=== PATIENT | male | born 1970 ===

== ENCOUNTER 2024-02-12 11:43 | Outpatient (REF) | payer OTHER, SELFPAY | END 2024-02-12 11:44 | disposition home or self-care (01) | LOC: HO.HOSX 11:43 | PROVIDERS: Visit Provider Physician Assistant | DX: Z13.89 Encounter for screening for other disorder (principal) ==

== ENCOUNTER 2024-02-13 07:58 | Outpatient (AMB) | payer OTHER, SELFPAY ==
--- NOTE | 2024-02-13 08:30 | A.OFFVIS_ITS ---
Vital Signs 02/13/24 08:36 Height 518 ft 4.48 in Weight 140 lb BMI 0.0 Intake Visit Reasons: FC - Left Wrist Fx, Rt Patellla Fx DOI: 01/29/24 Intake Note: Carlton a 53 year old right hand dominant Khmer speaking male who presents today for a WC injury to his left wrist and right knee, DOI 01/29/24. Patient reports to office with nurse hospice case manager Nahomy, he was seen at [facility] and was referred to orthopedics. He states very mild pain in his wrist. Denies numbness or tingling. He states improvement in his knee pain however he continues to have mild pain in the anterior aspect of knee and his calf area as well as swelling Allergies No Known Allergies Allergy (Verified 02/13/24 08:36) HPI HPI FC - Left Wrist Fx, Rt Patellla Fx DOI: 01/29/24: Details: 53-year-old right hand dominant Khmer speaking male who presents to the office today with nurse hospice case manager for evaluation of left wrist and right knee injury at work, 01/29/24. He was seen at [facility] where he was referred to our office. He currently states he has minimal pain in his wrist. He denies any numbness or tingling. He states he has improvement in his knee however he continues to have mild pain and swelling at the anterior aspect of his knee and calf area. He also c/o swelling in his calf region. 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 Review of Systems Const All systems reviewed & are unremarkable except as noted in HPI and below Physical Exam Vital Signs: BMI result Body Mass Index 0.0 Const General: cooperative, healthy appearing, comfortable, no acute distress, well developed and alert Orientation/consciousness: patient oriented x3 HEENT Head: Yes normal to inspection, Yes normocephalic and Yes atraumatic Eyes General: appearance normal, both eyes and all related structures Resp Effort & Inspection: normal respiratory effort and able to speak in complete sentences Cardio Rate: regular rate Peripheral pulses: Peripheral pulses 2+ throughout GI Palpation (GI): Soft to palpation Skin Lesions: no lesions Rashes: no rashes Neuro General: patient oriented x3 Extrem Other: Left wrist: Skin intact. There is significant swelling and bruising over the distal radius with tenderness over the fracture site. There is no pain over the elbow, negative forearm squeeze test. He has full range of motion of the elbow. He can fully extend all digits and make a closed fist.? Pulses are present and she is neurovascularly intact. Right knee: Skin intact, no erythema or joint effusion. Tenderness along the medial and lateral joint line. Full ROM with crepitus. Negative Stephanie?s. No ligamentous laxity. NVI. Results Reviewed Results Reviewed: Xrays were obtained in the office today and personally reviewed by me of the right wrist show intraarticular distal radius fracture Xrays were obtained in the office today and personally reviewed by me of the right knee negative for acute fracture or dislocations. Assessment & Plan Assessment & Plan (1) Distal radius fracture, left: Code(s): S52.502A - Unspecified fracture of the lower end of left radius, initial encounter for closed fracture Category: Medical (2) Strain of right gastrocnemius muscle: Code(s): S86.111A - Strain of other muscle(s) and tendon(s) of posterior muscle group at lower leg level, right leg, initial encounter Category: Medical Plan I explained to the patient the extent of the injury and options available.? We can treat this conservatively but will have to watch him very closely to make sure there is no displacement.? He would have to do no lifting more than a cell phone.? This would mean no lifting, carrying, pushing, pulling, or repetitive use of the left upper extremity at work/home.? I did explain to him that conservative treatment would likely be a cast for 6 weeks.? If there is some displacement that occurs, we may need to discuss surgical intervention which could require pinning versus plate and screws.? I also educated him on the risk factors of smoking and the effect that it can have on bone healing.? He does understand all this and will see me back in a week with Dr. Partida in the office for repeat x-rays. For his right leg, he was placed in a tall boot weight bearing as tolerated. He will begin a course of physical therapy to work on stretching, strengthening and proprioceptive training. He will see me back in 1 week for his wrist with cast off and new x-rays and will avoid the use of his LUE at work. Orders: Orders XR knee RT 2V 02/13/24 M25.569 - Pain in unspecified knee PT Evaluation and Treatment 02/13/24 S86.111A - Strain of other muscle(s) and tendon(s) of posterior muscle group at lower leg level, right leg, initial encounter XR wrist LT min 3V 02/13/24 M25.532 - Pain in left wrist Patient Instructions: Scribed for Beena Parks PA-C, by Vic Hollingsworth medical physics researcher, on 02/13/2024 at 8:30 AM EST.? I, Beena Parks PA-C, have personally reviewed and agree with the information entered by the scribe. Coding Level of Care Code New Pt Level 3 (05737) Diagnoses Distal radius fracture, left S52.502A Strain of right gastrocnemius muscle S86.111A
== END 2024-02-13 09:51 | disposition home or self-care (01) ==
PROVIDERS: Visit Provider Physician Assistant
DX: S52.502A Unspecified fracture of the lower end of left radius, initial encounter for closed fracture (principal); S86.111A Strain of other muscle(s) and tendon(s) of posterior muscle group at lower leg level, right leg, initial encounter; Z04.2 Encounter for examination and observation following work accident
CPT/HCPCS: 25600; 99204

== ENCOUNTER 2024-02-13 21:41 | Outpatient (REF) | payer OTHER, SELFPAY ==
--- NOTE | ~2024-02-13 | XR_ITS ---
EXAMINATION: XR KNEE, RIGHT XR WRIST, LEFT CLINICAL INDICATION: Pain in knee, left wrist. Splint off wrist. COMPARISON: None available. TECHNIQUE: 3 views left wrist. 2 views right knee. FINDINGS: RIGHT KNEE: Moderate joint effusion. Mild narrowing of the medial compartment. Minimal posterior patellar spurring. LEFT WRIST: Impacted, comminuted intra-articular fracture of the distal radius with volar displacement of distal fracture fragment. Mild degenerative changes of 1st carpometacarpal and metacarpophalangeal joints. XR/XR knee RT 2V IMPRESSION: 1. Impacted, comminuted intra-articular fracture of the distal radius with volar displacement of distal fracture fragment. 2. Moderate joint effusion right knee.
--- NOTE | ~2024-02-13 | XR_ITS ---
EXAMINATION: XR KNEE, RIGHT XR WRIST, LEFT CLINICAL INDICATION: Pain in knee, left wrist. Splint off wrist. COMPARISON: None available. TECHNIQUE: 3 views left wrist. 2 views right knee. FINDINGS: RIGHT KNEE: Moderate joint effusion. Mild narrowing of the medial compartment. Minimal posterior patellar spurring. LEFT WRIST: Impacted, comminuted intra-articular fracture of the distal radius with volar displacement of distal fracture fragment. Mild degenerative changes of 1st carpometacarpal and metacarpophalangeal joints. XR/XR wrist LT min 3V IMPRESSION: 1. Impacted, comminuted intra-articular fracture of the distal radius with volar displacement of distal fracture fragment. 2. Moderate joint effusion right knee.
== END 2024-02-13 21:42 | disposition home or self-care (01) ==
LOC: HO.HOSX 21:41
PROVIDERS: Visit Provider Physician Assistant
DX: S52.502A Unspecified fracture of the lower end of left radius, initial encounter for closed fracture (principal); S86.111A Strain of other muscle(s) and tendon(s) of posterior muscle group at lower leg level, right leg, initial encounter
CPT/HCPCS: 25600; 73110; 73560; 99202

== ENCOUNTER 2024-02-20 12:23 | Outpatient (REF) | payer OTHER, SELFPAY ==
--- NOTE | ~2024-02-20 | XR_ITS ---
EXAMINATION: XR WRIST, LEFT CLINICAL INFORMATION: Pain in left hand, cast off. COMPARISON: February 13, 2024. TECHNIQUE: PA, lateral, and oblique views of the left wrist. FINDINGS: Redemonstration of impacted, comminuted intra-articular fracture of the distal radius. Alignment appears similar. Mild interval bridging callus formation. Mildly displaced fracture of the ulnar styloid redemonstrated. Mild degenerative changes in the first carpometacarpal joint. XR/XR wrist LT min 3V IMPRESSION: 1. Redemonstration of impacted, comminuted intra-articular fracture of the distal radius. Alignment appears similar. Mild interval bridging callus formation. 2. Mildly displaced fracture of the ulnar styloid redemonstrated.
== END 2024-02-20 12:24 | disposition home or self-care (01) ==
LOC: HO.HOSX 12:23
PROVIDERS: Visit Provider Physician Assistant
DX: S52.532D Colles' fracture of left radius, subsequent encounter for closed fracture with routine healing (principal); S86.111D Strain of other muscle(s) and tendon(s) of posterior muscle group at lower leg level, right leg, subsequent encounter
CPT/HCPCS: 29075; 73110; 99212

== ENCOUNTER 2024-02-20 14:36 | Outpatient (AMB) | payer OTHER, SELFPAY ==
--- NOTE | 2024-02-20 14:46 | A.OFFVIS_ITS ---
Intake Visit Reasons: OV - left wrist fx, right patell. DOI 01/29/24 Intake Note: Carlton a 53 year old right hand dominant St Helenian speaking male who presents today for a follow up s/p WC injury to his left wrist and right knee, DOI 01/29/24. Cast off and xrays updated. Patient reports the pain is getting better but his thumb is still painful and has a little swelling. Allergies No Known Allergies Allergy (Verified 02/20/24 14:49) HPI HPI OV - left wrist fx, right patell. DOI 01/29/24: Details: 53-year-old right hand dominant male who returns to the office today with a laceworker for a follow-up of left wrist fracture and right knee, 01/29/24. He states he has improvement in his knee pain however he continues to have pain and mild swelling in his thumb. He has no concerns today. 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 Review of Systems Const All systems reviewed & are unremarkable except as noted in HPI and below Physical Exam Const General: cooperative, healthy appearing, comfortable, no acute distress, well developed and alert Orientation/consciousness: patient oriented x3 HEENT Head: Yes normal to inspection, Yes normocephalic and Yes atraumatic Eyes General: appearance normal, both eyes and all related structures Resp Effort & Inspection: normal respiratory effort and able to speak in complete sentences Cardio Rate: regular rate Peripheral pulses: Peripheral pulses 2+ throughout GI Palpation (GI): Soft to palpation Skin Lesions: no lesions Rashes: no rashes Neuro General: patient oriented x3 Extrem Other: Left wrist: Skin intact. No swelling or bruising over the distal radius with tenderness over the fracture site. There is no pain over the elbow, negative forearm squeeze test. He has full range of motion of the elbow. He can fully extend all digits and make a closed fist.? Pulses are present and she is neurovascularly intact. Office Procedures Fracture Care Fracture Billing Code: Fracture Billing Code Results Reviewed Results Reviewed: Xrays were obtained in the office today and personally reviewed by me of the [facility] wrist show intraarticular distal radius fracture Assessment & Plan Assessment & Plan (1) Distal radius fracture, left: Code(s): S52.502A - Unspecified fracture of the lower end of left radius, initial encounter for closed fracture Category: Medical Qualifiers: Encounter type: subsequent encounter Fracture type: closed Fracture morphology: Colles' Fracture healing: with routine healing Qualified Code(s): S52.532D - Colles' fracture of left radius, subsequent encounter for closed fracture with routine healing (2) Strain of right gastrocnemius muscle: Code(s): S86.111A - Strain of other muscle(s) and tendon(s) of posterior muscle group at lower leg level, right leg, initial encounter Category: Medical Plan We will continue to treat this conservatively but will have to watch him very closely to make sure there is no displacement.? He would have to do no lifting more than a cell phone.? This would mean no lifting, carrying, pushing, pulling, or repetitive use of the left upper extremity at work/home.? I did explain to him that conservative treatment would likely be a cast for 6 weeks. I also educated him on the risk factors of smoking and the effect that it can have on bone healing.? He does understand all this and will see me back in 3weeks in the office for cast off and repeat x-rays. Orders: Orders XR wrist LT min 3V Today M25.532 - Pain in left wrist Patient Instructions: Scribed for Beena Parks PA-C, by Vic Hollingsworth medical registrar, on 02/20/2024 at 2:00 PM EST.? I, Beena Parks PA-C, have personally reviewed and agree with the information entered by the scribe. Coding Level of Care Code Global (66426) Diagnoses Closed Colles' fracture of left radius with routine healing, subsequent encounter S52.532D Encounter type: subsequent encounter Fracture type: closed Fracture morphology: Colles' Fracture healing: with routine healing Strain of right gastrocnemius muscle S86.111A CPT Codes Fracture Care - Fracture Billing Code: Fracture Billing Code ([id number])
== END 2024-02-20 16:00 | disposition home or self-care (01) ==
LOC: HO.HOS 14:37
PROVIDERS: Visit Provider Physician Assistant
DX: S52.532D Colles' fracture of left radius, subsequent encounter for closed fracture with routine healing (principal); S86.111A Strain of other muscle(s) and tendon(s) of posterior muscle group at lower leg level, right leg, initial encounter
CPT/HCPCS: 29075; 99024

== ENCOUNTER 2024-03-19 08:29 | Outpatient (REF) | payer OTHER, SELFPAY ==
--- NOTE | ~2024-03-19 | XR_ITS ---
EXAMINATION: XR WRIST, LEFT CLINICAL INFORMATION: Left wrist pain, fracture follow-up COMPARISON: Radiographs 724 TECHNIQUE: PA, lateral, and oblique views of the left wrist. FINDINGS: Fracture lines of the impacted, intra-articular distal radius fracture are less conspicuous indicating interval partial healing. Ununited ulnar styloid avulsion fracture. Decrease in dorsal soft tissue swelling. Dorsally displaced/angulated fracture of Ankush's tubercle. XR/XR wrist LT min 3V IMPRESSION: Partial interval healing of the impacted, intra-articular distal radius fracture. Ununited ulnar styloid avulsion fracture.
== END 2024-03-19 08:30 | disposition home or self-care (01) ==
LOC: HO.HOSX 08:29
PROVIDERS: Visit Provider Physician Assistant
DX: S52.532D Colles' fracture of left radius, subsequent encounter for closed fracture with routine healing (principal)
CPT/HCPCS: 73110; 99212

== ENCOUNTER 2024-03-19 10:33 | Outpatient (AMB) | payer OTHER, SELFPAY ==
--- NOTE | 2024-03-19 11:30 | MHC.OFFVIS ---
Vital Signs 03/19/24 11:35 Weight 140 lb Intake Visit Reasons: OV - left wrist fx, right patell. DOI 01/29/24 Intake Note: Carlton a 53 year old right hand dominant Polish speaking male who presents today for a follow up s/p WC injury to his left wrist and right knee, DOI 01/29/24. Patient reports he has no concerns today and would like to know if he is able to return to work on Friday without restrictions due to him feeling good and having no pain. Marketing Manager Health Communications Required: Yes Marketing Manager Health Communications Language: Cheesemaking Laborer Name: [id number] Allergies No Known Allergies Allergy (Verified 03/19/24 11:35) Medication List - Last Reconciled 03/19/24 by Beena Parks PA-C No Known Home Meds HPI HPI OV - left wrist fx, right patell. DOI 01/29/24: Details: 53-year-old right hand dominant male who returns to the office today with an supply technician for a follow-up of left wrist 01/29/24. He states he has no pain or discomfort and is doing well overall. He would like to know about his work status today. He has no other concerns today. 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 Review of Systems Const All systems reviewed & are unremarkable except as noted in HPI and below Physical Exam Const General: cooperative, healthy appearing, comfortable, no acute distress, well developed and alert Orientation/consciousness: patient oriented x3 HEENT Head: Yes normal to inspection, Yes normocephalic and Yes atraumatic Eyes General: appearance normal, both eyes and all related structures Resp Effort & Inspection: normal respiratory effort and able to speak in complete sentences Cardio Rate: regular rate Peripheral pulses: Peripheral pulses 2+ throughout GI Palpation (GI): Soft to palpation Skin Lesions: no lesions Rashes: no rashes Neuro General: patient oriented x3 Extrem Other: Left wrist: Skin intact. No swelling or bruising over the distal radius with tenderness over the fracture site. There is no pain over the elbow, negative forearm squeeze test. He has full range of motion of the elbow. He can fully extend all digits and make a closed fist.? Pulses are present and she is neurovascularly intact. Results Reviewed Results Reviewed: Xrays were obtained in the office today and personally reviewed by me of the right wrist show intraarticular distal radius fracture with stable alignment and interval healing Assessment & Plan Assessment & Plan (1) Distal radius fracture, left: Code(s): S52.502A - Unspecified fracture of the lower end of left radius, initial encounter for closed fracture Category: Medical Qualifiers: Encounter type: subsequent encounter Fracture healing: with routine healing Fracture morphology: Colles' Fracture type: closed Qualified Code(s): S52.532D - Colles' fracture of left radius, subsequent encounter for closed fracture with routine healing Plan She was transitioned to a Velcro wrist splint which she will wear with activities. She will return to work on 03/22 with light duty restrictions. She will avoid any type of lifting, pushing, pulling, or carrying more than a cellphone and perform no ladder climbing. An order for occupational therapy was also placed in the office today. I would like to see her back in 6 weeks with new x-rays, sooner if needed. Orders: Orders XR wrist LT min 3V Today M25.532 - Pain in left wrist OT Evaluation and Treatment Today S52.532D - Colles' fracture of left radius, subsequent encounter for closed fracture with routine healing Patient Instructions: Scribed for Beena Parks PA-C, by Vic Hollingsworth medical file clerk, on 03/19/2024 at 11:00 AM EST.? I, Beena Parks PA-C, have personally reviewed and agree with the information entered by the scribe. Coding Level of Care Code Global (16196) Diagnoses Closed Colles' fracture of left radius with routine healing, subsequent encounter S52.532D Encounter type: subsequent encounter Fracture healing: with routine healing Fracture morphology: Colles' Fracture type: closed
== END 2024-03-19 12:07 | disposition home or self-care (01) ==
PROVIDERS: Visit Provider Physician Assistant
DX: S52.532D Colles' fracture of left radius, subsequent encounter for closed fracture with routine healing (principal)
CPT/HCPCS: 99024

== ENCOUNTER 2024-04-30 10:33 | Outpatient (AMB) | payer OTHER, SELFPAY ==
--- NOTE | 2024-04-30 10:37 | MHC.OFFVIS ---
Intake Visit Reasons: 6 wk fu left distal radius w xrays Intake Note: Carlton is a 53 year old right hand dominant male who presents today for a follow up with his skilled nursing case manager s/p Left Distal Radius Fracture s/p WC injury to his left wrist and right knee, DOI 01/29/24. Patient was placed in velcro wrist splint and given a note 7/8 with light duty restrictions. He is working light duty with restrictions on any type of lifting, pushing, pulling, or carrying more than a cellphone and perform no ladder climbing. Allergies No Known Allergies Allergy (Verified 03/19/24 11:35) HPI HPI 6 wk fu left distal radius w xrays: Details: Carlton is a 53 year old right hand dominant male who presents today for a follow up with his skilled nursing case manager s/p Left Distal Radius Fracture s/p WC injury to his left wrist and right knee, DOI 01/29/24. Patient was placed in velcro wrist splint and given a note 7/8 with light duty restrictions. She will avoid any type of lifting, pushing, pulling, or carrying more than a cellphone and perform no ladder climbing. 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 Stiff in flexion Dynasplint and continue current work restrictions. Continue OT F/u 6 weeks Orders: Orders XR wrist LT min 3V 04/30/24 M25.532 - Pain in left wrist Coding Level of Care Code Est Pt Level 3 (19562) Diagnoses Closed Colles' fracture of left radius with routine healing, subsequent encounter S52.532D Encounter type: subsequent encounter Fracture type: closed Fracture morphology: Colles' Fracture healing: with routine healing
== END 2024-04-30 11:02 | disposition home or self-care (01) ==
PROVIDERS: Absent Provider Orthopaedic Surgery; Visit Provider Orthopaedic Surgery
DX: S52.532D Colles' fracture of left radius, subsequent encounter for closed fracture with routine healing (principal)
CPT/HCPCS: 99024

== ENCOUNTER → 2024-04-30 10:33 | Outpatient (BNVA) | payer OTHER, SELFPAY | PROVIDERS: Absent Provider Orthopaedic Surgery; Visit Provider Physician Assistant | DX: S52.532D Colles' fracture of left radius, subsequent encounter for closed fracture with routine healing (principal) | CPT/HCPCS: 99212 ==

== ENCOUNTER 2024-06-11 09:27 | Outpatient (AMB) | payer OTHER, SELFPAY ==
--- NOTE | 2024-06-11 10:07 | A.OFFVIS_ITS ---
Vital Signs 06/11/24 10:20 Height 5 ft 4 in Weight 140 lb BMI 24.0 Intake Visit Reasons: OV - Right Distal Radius Fx 01/29/24 Intake Note: Carlton is a 53 year old right hand dominant male who presents today with his case preparer and liner for a follow up of his left distal radius fracture, DOI 01/29/24. Patient reports he continues to have pain. He has was given a brace by OT to use daily for an hour and a half, however brace increases his pain making it difficult to do exercise. OT is requesting an extension on his brace. He complains of ongoing pain in his right knee with use of stairs or fast walking. He did not attend PT due to him feeling his knee would get better. Pipe Fitter [employer]pper Required: Yes Pipe Fitter [employer]pper Services: Pipe Fitter Soft [employer]pper Present Pipe Fitter Soft Copper Name: IGNACIO Garza/RIKKI Allergies No Known Allergies Allergy (Verified 06/11/24 10:19) HPI HPI OV - Right Distal Radius Fx 01/29/24: Details: 53-year-old right hand dominant male who returns to the office today with his case preparer and liner for a follow-up of right wrist fracture, 01/29/24. He continues to have pain in his wrist that is aggravated with wearing his brace. He was given a brace by occupational therapy however his pain makes it difficult to work on exercises. He also reports he has pain in his right knee that is aggravated with stairs and running. He did not attend physical therapy as he felt his knee would get better. 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 Review of Systems Const All systems reviewed & are unremarkable except as noted in HPI and below Physical Exam Vital Signs: BMI result Body Mass Index 24.0 Const General: cooperative, healthy appearing, comfortable, no acute distress, well developed and alert Orientation/consciousness: patient oriented x3 HEENT Head: Yes normal to inspection, Yes normocephalic and Yes atraumatic Eyes General: appearance normal, both eyes and all related structures Resp Effort & Inspection: normal respiratory effort and able to speak in complete sentences Cardio Rate: regular rate Peripheral pulses: Peripheral pulses 2+ throughout GI Palpation (GI): Soft to palpation Skin Lesions: no lesions Rashes: no rashes Neuro General: patient oriented x3 Extrem Other: Left wrist: Skin intact. No swelling or bruising over the distal radius with tenderness over the fracture site. There is no pain over the elbow, negative forearm squeeze test. He has full range of motion of the elbow. He can fully extend all digits and make a closed fist.? Pulses are present and she is neurovascularly intact. Results Reviewed Results Reviewed: Xrays were obtained in the office today and personally reviewed by me of the right wrist show intraarticular distal radius fracture with stable alignment and interval healing Assessment & Plan Assessment & Plan (1) Distal radius fracture, left: Code(s): S52.502A - Unspecified fracture of the lower end of left radius, initial encounter for closed fracture Category: Medical Qualifiers: Encounter type: subsequent encounter Fracture healing: with routine healing Fracture morphology: Colles' Fracture type: closed Qualified Code(s): S52.532D - Colles' fracture of left radius, subsequent encounter for closed fracture with routine healing (2) Strain of right gastrocnemius muscle: Code(s): S86.111A - Strain of other muscle(s) and tendon(s) of posterior muscle group at lower leg level, right leg, initial encounter Category: Medical Plan He will be transitioned to work hardening therapy program. His work status remain the same however he will begin lifting 5 pounds. I would like to see him back in 8 weeks to determine his work status, sooner if needed. Orders: Orders XR wrist RT min 3V Today M25.531 - Pain in right wrist PT Evaluation and Treatment Today S52.532D - Colles' fracture of left radius, subsequent encounter for closed fracture with routine healing, S86.111A - Strain of other muscle(s) and tendon(s) of posterior muscle group at lower leg level, r ight leg, initial encounter Patient Instructions: Scribed for Beena Parks PA-C, by Vic Hollingsworth medical or surgical instrument maker, on 06/11/2024 at 9:45 AM EST.? I, Beena Parks PA-C, have personally reviewed and agree with the information entered by the scribe. Coding Level of Care Code Est Pt Level 3 (00615) Complex EM visit Add On G2211 Diagnoses Closed Colles' fracture of left radius with routine healing, subsequent encounter S52.532D Encounter type: subsequent encounter Fracture healing: with routine healing Fracture morphology: Colles' Fracture type: closed Strain of right gastrocnemius muscle S86.111A
[2024-06-11 10:20] VITALS: BMI 24.0
== END 2024-06-11 10:47 | disposition home or self-care (01) ==
PROVIDERS: Visit Provider Physician Assistant
DX: S52.532D Colles' fracture of left radius, subsequent encounter for closed fracture with routine healing (principal); S86.111A Strain of other muscle(s) and tendon(s) of posterior muscle group at lower leg level, right leg, initial encounter
CPT/HCPCS: 99213; G2211

== ENCOUNTER 2024-06-11 09:27 | Outpatient (REF) | payer OTHER, SELFPAY ==
--- NOTE | ~2024-06-11 | XR_ITS ---
EXAMINATION: XR WRIST, RIGHT CLINICAL INFORMATION: M25.531 - Pain in right wrist COMPARISON: None available. TECHNIQUE: PA, lateral, and oblique views of the right wrist. FINDINGS: Diffuse osteopenia. Redemonstration of intra-articular fracture of the distal radius without significant displacement, and stable alignment. Stable minimal articular step-off on the lateral projection. Fracture lines continue to become less distinct and sclerotic indicating healing. Ulnar styloid fracture also healing. There is mild narrowing of the radiocarpal joint, and mild arthritis in the STT joints and first CMC joint. There is spurring of the DRUJ. Neutral ulnar variance. Soft tissue swelling has improved. XR/XR wrist RT min 3V IMPRESSION: 1. Healing intra-articular radial fracture in stable alignment. 2. Healing ulnar styloid fracture. 3. Improved soft tissue swelling. 4. Disuse osteopenia. Electronically signed by: Eleazar Peters MD 08/20/2024 02:02 PM NADIYA
--- NOTE | ~2024-06-11 | XR_ITS ---
EXAMINATION: XR WRIST, LEFT CLINICAL INFORMATION: M25.532 - Pain in left wrist COMPARISON: 06/11/2024, 03/19/2024, and dating back to 02/13/2024. TECHNIQUE: PA, lateral, and oblique views of the left wrist. FINDINGS: Diffuse osteopenia. Redemonstration of intra-articular fracture of the distal radius without significant displacement, and stable alignment. Stable minimal articular step-off on the lateral projection. Fracture lines continue to become less distinct and sclerotic indicating healing. Ulnar styloid fracture also healing. There may be nonunion. There is mild narrowing of the radiocarpal joint, and mild arthritis in the STT joints and first CMC joint. There is spurring of the DRUJ. Neutral ulnar variance. Soft tissue swelling has improved significantly. XR/XR wrist LT min 3V IMPRESSION: 1. Healing intra-articular radial fracture in stable alignment. 2. Healing ulnar styloid fracture, possibly with nonunion. 3. Improved soft tissue swelling. Electronically signed by: Eleazar Peters MD 08/20/2024 02:00 PM NADIYA
== END 2024-06-11 09:28 | disposition home or self-care (01) ==
LOC: HO.XRAY 09:27
PROVIDERS: Visit Provider Physician Assistant
DX: S52.531D Colles' fracture of right radius, subsequent encounter for closed fracture with routine healing (principal); M25.532 Pain in left wrist; S86.111A Strain of other muscle(s) and tendon(s) of posterior muscle group at lower leg level, right leg, initial encounter
CPT/HCPCS: 73110; 99212

== ENCOUNTER → 2024-06-11 09:42 | Outpatient (BNV) | payer OTHER, SELFPAY | PROVIDERS: Visit Provider Radiology Diagnostic Radiology | DX: S52.571D Other intraarticular fracture of lower end of right radius, subsequent encounter for closed fracture with routine healing (principal); S52.611D Displaced fracture of right ulna styloid process, subsequent encounter for closed fracture with routine healing; S52.572D Other intraarticular fracture of lower end of left radius, subsequent encounter for closed fracture with routine healing; S52.612D Displaced fracture of left ulna styloid process, subsequent encounter for closed fracture with routine healing | CPT/HCPCS: 73110 ==

== ENCOUNTER 2024-08-05 09:03 | Outpatient (AMB) | payer OTHER, SELFPAY ==
--- NOTE | 2024-08-05 09:37 | A.OFFVIS_ITS ---
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 Patient reports he is doing well, he has been discharged from work conditioning. Deep Tissue Massage Therapist Required: Yes Deep Tissue Massage Therapist Services: Deep Tissue Massage Therapist Present Deep Tissue Massage Therapist Name: Sherwin ID#[id number] Allergies No Known Allergies Allergy (Verified 08/05/24 09:46) HPI HPI OV-f/u Left distal radius fx-rtw status: Details: 54-year-old gentleman returns to the office today for a follow-up left distal radius fracture. He has been working with physical therapy on a work conditioning program which she has successfully completed. 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 Review of Systems Const All systems reviewed & are unremarkable except as noted in HPI and below Physical Exam Vital Signs: BMI result Body Mass Index 24.0 Const General: cooperative, healthy appearing, comfortable, no acute distress, well developed and alert Orientation/consciousness: patient oriented x3 HEENT Head: Yes normal to inspection, Yes normocephalic and Yes atraumatic Eyes General: appearance normal, both eyes and all related structures Resp Effort & Inspection: normal respiratory effort and able to speak in complete sentences Cardio Rate: regular rate Peripheral pulses: Peripheral pulses 2+ throughout GI Palpation (GI): Soft to palpation Skin Lesions: no lesions Rashes: no rashes Neuro General: patient oriented x3 Extrem Other: Left wrist: Skin intact. No swelling or bruising over the distal radius with tenderness over the fracture site. There is no pain over the elbow, negative forearm squeeze test. He has full range of motion of the elbow. He can fully extend all digits and make a closed fist.? Pulses are present and she is neurovascularly intact. Assessment & Plan Assessment & Plan (1) Distal radius fracture, left: Code(s): S52.502A - Unspecified fracture of the lower end of left radius, initial encounter for closed fracture Category: Medical Qualifiers: Encounter type: subsequent encounter Fracture type: closed Fracture morphology: Colles' Fracture healing: with routine healing Qualified Code(s): S52.532D - Colles' fracture of left radius, subsequent encounter for closed fracture with routine healing Plan: At this time he will increase activities as tolerated return to work without restrictions. Return to work date 08/06/2024. He will contact us if there is any questions or concerns going forward. Coding Level of Care Code Est Pt Level 3 (58770) Complex EM visit Add On G2211 Diagnoses Closed Colles' fracture of left radius with routine healing, subsequent encounter S52.532D Encounter type: subsequent encounter Fracture type: closed Fracture morphology: Colles' Fracture healing: with routine healing
[2024-08-05 09:44] VITALS: BMI 24.0
== END 2024-08-05 09:59 | disposition home or self-care (01) ==
PROVIDERS: Visit Provider Physician Assistant
DX: S52.532D Colles' fracture of left radius, subsequent encounter for closed fracture with routine healing (principal)
CPT/HCPCS: 99213; G2211

== ENCOUNTER → 2024-08-05 09:03 | Outpatient (BNVA) | payer OTHER, SELFPAY | PROVIDERS: Visit Provider Physician Assistant | DX: S52.532D Colles' fracture of left radius, subsequent encounter for closed fracture with routine healing (principal) | CPT/HCPCS: 99212 ==